=== PATIENT | male | born 1945 | race Caucasian/White ===

== ENCOUNTER 2017-12-05 06:57 | Day surgery (SDC) ==
[2017-12-05] MEDS: TETRACAINE 0.5% UNIT-DOSE OP PRN ×2 (07:25→08:20)
[2017-12-05] MEDS: BETADINE OPTH PREP OP PRN ×3 (07:25→08:20)
[2017-12-05] MEDS: CYCLOGYL 2% OPTH OP PRN ×3 (07:27→07:37)
[2017-12-05 07:36] VITALS: TEMP 97.8
[2017-12-05] MEDS ORDERED: ZOFRAN 4 MG/2 ML IVP ONE (07:37)
[2017-12-05] MEDS ORDERED: LIDOCAINE 1% 20 ML MDV ID STA (07:37)
[2017-12-05] MEDS ORDERED: DEX-MOXI-KETOR OPTH INJ 1/0.5/0.4 MG/ML IO ONE (07:37)
[2017-12-05] MEDS ORDERED: BRIMONIDINE TARTRATE 0.2% OPTH SOL OP PRN (07:37)
[2017-12-05] MEDS ORDERED: BSS WITH EPINEPHRINE OP ONE (07:37)
[2017-12-05] MEDS ORDERED: LIDOCAINE 1%/PHENYLEPHRINE 1.5% BSS (SURGERY) INTRAOCULA ONE (07:37)
[2017-12-05] MEDS ORDERED: VERSED ONE (08:30)
[2017-12-05] MEDS ORDERED: SUBLIMAZE ONE (08:30)
[2017-12-05 12:22] VITALS: BP 127/67
== END 2017-12-05 09:30 | disposition home or self-care (01) ==
LOC: SURG 06:57
PROVIDERS: ATTEND Ophthalmology
DX: H25.11 Age-related nuclear cataract, right eye (principal)